=== PATIENT | female | born 2000 | race Caucasian/White ===

== ENCOUNTER 2018-07-12 08:23 | Day surgery (SDC) | payer OTHER ==
--- NOTE | 2018-07-11 21:24 | PDGENHP ---
History and Physical - Chief Complaint LEFT HIP PAIN - History of Present Illness 1. Bilateral~Femoroacetabular impingement (ROSEMARY) Cam type~(LEFT>>RIGHT symptoms ) 2. Bilateral~Hip Dyplasia, LEFT yanet, RIGHT borderline (LEFT>>RIGHT symptoms) 3. ~~Hyperlaxity with Beighton's 6 HISTORY OF PRESENT ILLNESS: Vladimiris a~17 y.o.~very~~active~female~who I have had the pleasure to consult on today.~I have enjoyed meeting her.~Naya~lives in [place], [place] but goes to school at [employer].~~Vladimiris a sophomore in college.~~Naya~is single;~naya~has 0~children. ~Vladimirenjoys running, played basketball in high school. Myranda's~bilateral~hip pain (L>>R)~started December 2017, with~little~recalled trauma or injury~(had run a marathon in July 2017 and continued doing 40-50 mi/ wk), and with~little~previous complaints.~Vladimirhas~a known history of hip dysplasia -- has been told by several MDs~(Ashish Arnold)~that she has mild dysplasia. Presentation today is of~anterior~bilateral~hip pain deep inside. ~The hip~does not~wake her~at night and~does~click and catch on~her~(R>L). Sitting~can be uncomfortable~for her.~Vladimirdoes not~report suffering from lower back pain episodes. Vladimirhas~participated in physical therapy (6 wks in January 2018)~and~has~ tried other conservative measures including massage therapy,~hip injections.~ She has had b/l hip injections done while she was at school in -- the right side was injected first with US guidance, after 3-5 days she had 85 % relief for 2-3 wks. Left was done with fluoro guidance with similar improvement to the other side.~She~has not~received sufficient symptomatic improvement. Vladimirhas~utilized medication for pain management, including NSAID and OTC acetaminophen.~Vladimirhas used medication consistently for January through March and has since stopped since it did not provide appreciable relief. Vladimirunderstands that~naya~has a hip and pelvis problem which should be researched and wishes to get a better understanding of~her~hip status, followed by an establishment of a treatment strategy, hoping~judithwould be able to get back to~her~well being active life. History: Past medical history:~~ None which is relevant~ Relevant familial history:~None which is relevant~ Past surgical history:~ None Vladimirhas never received general anesthesia. I have reviewed, verified and agree with the past medical, surgical, family and social history. Current Medications:~has a current medication list which includes the following prescription(s): cephalexin and norethindrone-e.estradiol-iron. ALLERGIES:~has No Known Allergies. Objective: Physical Examination: Vladimiris 6~feet~0~inches tall and weighs~145~Lbs. Shoe size~12. Vladimiris AAO x3; naya~is well-nourished, in NAD. Skin is warm and dry. ~Breathing is non-labored. ~CV with RRR by pulse. Abdomen is soft, NTND. Currently,~naya~walks with a~normal~gait. Trendelenburg sign is~negative~and proprioception~is decreased,~left~sides. She~presents~with moderate~signs of joint laxity.~Beightons Score:~6 (knees, elbows, pinkys) She~is fit looking. ~~ Lower spine examination is~negative~for sciatic or femoral nerve irritation with negative~SLR &~femoral stretch tests. Range of motion of the spine is normal~for flexion, extension, and rotations,~with no~associated pain. Strength, Sensation and pulses are~normal -~bilaterally Ankles and knees exams are~normal~and~no~mal-alignment is evident.~ Naya~has~minimal~left~0.25~cm short leg length discrepancy. Thigh circumference is~symmetric~with no evidence for muscle atrophy~on both~ sides. Hip ROM (degrees): FL ER At 90~hip FL IR At 90~hip FL AB AD EX IR Neutral hip ER Neutral hip R 120 45 35-40 40 10 5 55 30 L 120 45 35 45 5 5 45 25-30 Specific hip and pelvis tests: Impingement Test MICHELLE Roll Add. Longus R +++ +++ +++ Negative L +++ +++ +++ Negative Glut. Med ITB Posterior Imp R Negative 5/5 strength Negative 5/5 strength +++~(anterior) L Negative 5/5 strength Negative 5/5 strength +++~(anterior) Squeeze test measured~strong Bony Symphysis pubis is~pain free~to touch while concentric activity of the rectus abdominis, does not~produce pain at its insertion. Ilio Psos specific tests are~positive for pain during cycling for~both hips~and remarkable for no snap HF has~some pain, good strength~both hips. No significant~capsule tenderness b/l Greater trochanteric burse is~pain free~on both hips. Piriformis tests: FAIR is~negative,~with no~local signs of neuritis related to sciatic nerve. SIJs examination is~normal~with~normal~MICHELLE in relation and local tenderness. Hamstrings tests are~negative~tendinopathy both hips. On a daily basis, the following percentages reflect~Myranda's overall total pain: Deep hip~anterior:~100% Imaging: Radiology studies which I~have personally reviewed, analyzed and measured are below: XR: AP of the hip and pelvis: Performed in a~good~technique Coccyx to pubic symphysis distance~3~cm. No annotation~degrees caudal/cephal, upright WB films per pt [place]~Lines are preserved. No~Pathological signs are seen in the Symphysis Pubis.~ No~Pathological signs are seen at the Ischial~tuberosity. ~ Specific measurements show: NSA~ LCE Sourcil~Angle Sharp's angle Lat. Cam Lat. Pincer C.Over~sign Head~Coverage % ATDmm R 126 23 4 38 Neg Neg 2:00 77% 28.0 L 129 20 11 47 Neg Neg 1:00 75% 22.1 Pos. wall sign ISS NAD ~~Dysplasia Comments R + + 13.6~mm + L + Negative 16.3~mm + Sclerosis Sup. Lat. OA Cysts Joint Space-WBZ Joint Space-Medial R Negative Negative Negative 4.1~mm 4.1~mm L Negative Negative Negative 4.1~mm 3.4~mm X Table lateral: ~ Anterior cam lesion is~seen~on both hips. Alpha Angle: ~ Right~58~degrees Left~66~degrees MRI: 01/20/18 R hip - Good cartilage quality, no acetabular cysts/edema, labral tear, length 8.[address] / 3D:~ 04/28/18 Right hip: Lateral center edge angle: 28 degrees Anterior center edge angle: 55 degrees* Equatorial acetabular version angle: 27 degrees anteverted.* Cranial acetabular version angle: 7 degrees anteverted. Femoral neck shaft angle: 136 degrees Femoral neck version angle: 13 degrees anteverted Femoral shaft torsion angle: 32 degrees internally rotated Left hip: Lateral center edge angle: 20 degrees* Anterior center edge angle: 46 degrees* Equatorial acetabular version angle: 21 degrees anteverted.* Cranial acetabular version angle: 13 degrees anteverted.* Femoral neck shaft angle: 140 degrees Femoral neck version angle: 30 degrees anteverted* Femoral shaft torsion angle: 25 degrees internally rotated* Impression and plan:~ Myranda~is a~17 y.o.~active female~suffering from symptomatic~Bilateral~ Femoroacetabular impingement (ROSEMARY) Cam type~and~Bilateral~Hip Instability~(LEFT> >RIGHT)~causing significant disability to~her~and altering~her~sport and life activities. Physical examination, imaging, and~her~story correspond with the diagnosis mentioned above. I explained that hip dysplasia is a condition wherein the hip joint has excessive play~and instability due to a variety of factors, including the depth and adequacy of the socket, the orientation of the femur bone, and ligament laxity around the hip joint. Dysplasia ranges in severity from borderline to yanet, with treatment options being specific to the specific nature of the problem. Left untreated, the instability in the hip joint can cause progressive tearing of the labrum and deterioration of the surface cartilage, ultimately resulting in progressive osteoarthritis of the hip. I explained that femoroacetabular impingement (ROSEMARY - Cam type) arises due to a bony or soft tissue conflict between the femur (ball) and acetabulum (socket) caused by an abnormality in the shape of the femoral head and neck. Over time, repetitive impingement can result in damage to the labrum and adjacent surface cartilage within the socket, ultimately giving rise to progressive osteoarthritis of the hip. I explained that although a labral tear can be a source of pain, it is rarely the root of the problem and typically occurs secondary to an underlying abnormality in the shape and mechanics of the hip joint. I reviewed conservative treatment options for Dysplasia and ROSEMARY including activity modification to avoid positions of impingement or instability, physical therapy, non-steroidal anti-inflammatory medications, and various injections (corticosteroid and PRP) aimed at reducing inflammation in the hip joint or/and preventing dynamic instability and impingement. PRP injections may promote healing and reduce symptoms in certain cases but it will not repair chronically damaged tissue. Although these measures may help to buy time~and reduce current level of symptoms, they are not a definitive solution to the problem given the underlying abnormality in the shape of the hip joint. Patients who have failed conservative management and continue to experience symptoms are candidates for definitive surgical treatment, which may consist of hip arthroscopy alone or in combination with more invasive bony realignment procedures of the hip socket and/or femur called periacetabular osteotomy (MAYKEL) or derotational femoral osteotomy (DFO). Hip arthroscopy typically includes treating the labrum with either repair or reconstruction of the torn labrum; as well as addressing the underlying abnormalities by restoring the normal shape to the hip joint. If the cartilage is damaged a Microfracture surgical procedure may also be necessary to help stimulate the growth of fibrocartilage. If a patient requires a labral reconstruction or a Microfracture, the initial rehabilitation from the surgery may take longer, but the professor of astronomy results are typically favorable. I reviewed the technical aspects of periacetabular osteotomy (MAYKEL) including risks, benefits, and expected course of recovery. Myranda understands that MAYKEL is an inpatient procedure carried out through two medium sized incisions on the front and back of the hip joint. The hip socket is cut, realigned, and stabilized with 2 3 internal screws. Risks include infection, bleeding, injury to nearby nerves or vessels, stiffness, persistent pain, instability, failure of bony healing, implant related complications, and venous thromboembolic disease. Rarely, revision surgery may be required to address these problems. Risks, potential complications, side effects and recovery from surgical procedure were discussed in length. We explained how this surgery is an open procedure, and though patients tend to do well in the long-term, it involves significant pain in the first 2-4 weeks post-op and a rather lengthy rehab. Overall recovery takes approximately 6 12 months depending on the extent of damage and degree of repair. Myranda understands that she will undergo hip arthroscopy 1 week prior to the MAYKEL to address damage inside the hip joint. Myranda understands that hip arthroscopy and MAYKEL are two separate procedures that are best performed one week apart, with the arthroscopy commencing first to "tighten up" any pathology evident in the hip joint (labral repair, etc.) and the MAYKEL open procedure occurring 7-10 days later to realign the acetabulum. Vladimirwill review the info presented. We discussed at length the surgical options and recommendations. For her L side , her dysplasia is more significant and we would recommend scope/MAYKEL. The R side has less dysplasia, but given her antetorsion, acetabular version~and hyperlaxity, this may still be a significant contributor to her problem. Scope/ MAYKEL and scope alone are both viable choices as long as she is aware that scope alone may fail and then she would likely need scope/MAYKEL afterwards. Since she is young with good quality cartilage, she likely has enough reserve that her professor of astronomy outcomes would not be affected. If she decides to proceed with bilateral scope/MAYKEL, we would do the less symptomatic R side 4 months after the L. She is currently scheduled for L scope/MAYKEL in July~which she did prior to seeing me today based on her visits and recommendation with dr Arnold and Dr Hinojosa. I explained that I can follow up on Dr Hinojosa scope procedure. Vladimiris happy with this plan. I have also supplied~her~with handouts, outlining the expected surgical treatment and rehab involved. I wish~Vladimirall the best, ~~ Martha Siu MD History Information - Allergies/Home Medication List Allergies/Adverse Reactions: No Known Allergies Allergy (Verified 06/27/18 10:19) Home Medications: NK [No Known Home Meds] 06/27/18 [Last Taken Unknown] I have personally reviewed and updated: medical history - Social History Smoking Status: Never smoked Review of Systems Review of Systems: Physical Exam Physical Exam:
[2018-07-12] MEDS ORDERED: PREGABALIN 150 MG CAP PO ONE (08:34)
[2018-07-12] MEDS ORDERED: ceFAZolin 2 GM/DEXTROSE 100 ML IV ONE (08:34)
[2018-07-12] MEDS ORDERED: ACETAMINOPHEN 500 MG TAB PO ONE (08:34)
[2018-07-12] MEDS ORDERED: LIDOCAINE 1% 2 ML INJ ID PRN (08:39)
[2018-07-12] MEDS ORDERED: LR 1,000 ML IV ONE (08:39)
[2018-07-12] MEDS ORDERED: EPINEPHrine 30 MG/30 ML MDV (0.1 MG/0.1 ML) ONE ×2 (08:44→09:54)
[2018-07-12] MEDS ORDERED: BUPIVACAINE 0.25% 30 ML SDV ONE (09:54)
[2018-07-12] MEDS ORDERED: HYDROmorphONE/DILAUDID 2 MG/ML INJ IVP PRN (10:17)
[2018-07-12] MEDS ORDERED: ONDANSETRON 4 MG/2 ML VIAL IVP PRN (10:17)
[2018-07-12] MEDS ORDERED: LR 500 ML IV PRN (10:17)
[2018-07-12] MEDS ORDERED: ALBUTEROL 3 ML DEYVIAL IH PRN (10:17)
[2018-07-12] MEDS ORDERED: NS 500 ML IV PRN (10:17)
[2018-07-12] MEDS ORDERED: MIDAZOLAM 2 MG/2 ML VIAL IVP ONE (10:17)
[2018-07-12] MEDS ORDERED: NALOXONE HCL 0.4 MG/ML INJ IVP PRN (10:17)
[2018-07-12] MEDS ORDERED: PROPOFOL/EMULSION 500 MG/50 ML BOTTLE IV ONE (11:02)
[2018-07-12] MEDS ORDERED: fentaNYL 100 MCG/2 ML INJ ONE ×4 (11:37→15:44)
[2018-07-12] MEDS ORDERED: ePHEDrine SULFATE 25 MG/5 ML SYR ONE (11:56)
[2018-07-12] MEDS: BUPIVACAINE/EPI 0.25% 10 ML SDV ONE ×2 (12:29→12:31)
--- NOTE | 2018-07-12 13:02 | POSTOPPROG ---
Post Op Note Date of Operation: 07/12/18 Surgeon: Efrain Hood Automatic [employer] Cut Off Sawyer: Dr. Kunz Anesthesia: GET(General Endotracheal) Pre-op Diagnosis: LEFT ROSEMARY Post-op Diagnosis: LEFT ROSEMARY Procedure: Left hip arthroscopy Inf/Abcess present in the surg proc area at time of surgery?: No
[2018-07-12] MEDS: fentaNYL 100 MCG/2 ML INJ IVP PRN ×3 (14:10→15:47)
--- NOTE | 2018-07-12 14:24 | POSTANESTH ---
Post Anesthetic Evaluation Cardiovascular Status: Normal, Stable Respiratory Status: Normal, Stable Level of Consciousness/Mental Status: Can Participate in Eval Pain Control: Inadeq, Add Tx Required Nausea/Vomiting Control: Adequate, Prn Tx Ordered Complications Possibly Related to Anesthesia: None Noted
[2018-07-12] MEDS ORDERED: HYDROmorphONE/DILAUDID 2 MG/ML INJ ONE (14:38)
[2018-07-12] MEDS ORDERED: OXYCODONE/APAP 5/325 TAB ONE (15:44)
[2018-07-12] MEDS ORDERED: OXYCODONE/APAP 5/325 TAB PO PRN (15:49)
== END 2018-07-12 17:00 | disposition home or self-care (01) ==
LOC: EDSEX 08:23 → FSGY 08:23
PROVIDERS: ATTEND Orthopaedic Surgery Sports Medicine
PROC: 0SQB4ZZ Repair Left Hip Joint, Percutaneous Endoscopic Approach (ICD-10-PCS; principal; 2018-07-12 10:00)
DX: M25.852 Other specified joint disorders, left hip (principal); M24.152 Other articular cartilage disorders, left hip; Q65.89 Other specified congenital deformities of hip
CPT/HCPCS: C1713; J0171; J0690; J1170; J2250; J2704; J3010

== ENCOUNTER 2018-07-19 05:37 | Inpatient (IN) | payer OTHER ==
--- NOTE | 2018-07-18 21:32 | PDGENHP ---
History and Physical - Chief Complaint LEFT HIP PAIN - History of Present Illness 1. Bilateral~Femoroacetabular impingement (ROSEMARY) Cam type~(LEFT>>RIGHT symptoms ) 2. Bilateral~Hip Dyplasia, LEFT yanet, RIGHT borderline (LEFT>>RIGHT symptoms) 3. ~~Hyperlaxity with Beighton's 6 HISTORY OF PRESENT ILLNESS: Vladimiris a~17 y.o.~very~~active~female~who I have had the pleasure to consult on today.~I have enjoyed meeting her.~Naya~lives in [place], [place] but goes to school at [employer].~~Vladimiris a sophomore in college.~~Naya~is single;~naya~has 0~children. ~Vladimirenjoys running, played basketball in high school. Myranda's~bilateral~hip pain (L>>R)~started December 2017, with~little~recalled trauma or injury~(had run a marathon in July 2017 and continued doing 40-50 mi/ wk), and with~little~previous complaints.~Vladimirhas~a known history of hip dysplasia -- has been told by several MDs~(Ashish Arnold)~that she has mild dysplasia. Presentation today is of~anterior~bilateral~hip pain deep inside. ~The hip~does not~wake her~at night and~does~click and catch on~her~(R>L). Sitting~can be uncomfortable~for her.~Vladimirdoes not~report suffering from lower back pain episodes. Vladimirhas~participated in physical therapy (6 wks in January 2018)~and~has~ tried other conservative measures including massage therapy,~hip injections.~ She has had b/l hip injections done while she was at school in -- the right side was injected first with US guidance, after 3-5 days she had 85 % relief for 2-3 wks. Left was done with fluoro guidance with similar improvement to the other side.~She~has not~received sufficient symptomatic improvement. Vladimirhas~utilized medication for pain management, including NSAID and OTC acetaminophen.~Vladimirhas used medication consistently for January through March and has since stopped since it did not provide appreciable relief. Vladimirunderstands that~naya~has a hip and pelvis problem which should be researched and wishes to get a better understanding of~her~hip status, followed by an establishment of a treatment strategy, hoping~judithwould be able to get back to~her~well being active life. History: Past medical history:~~ None which is relevant~ Relevant familial history:~None which is relevant~ Past surgical history:~ None Vladimirhas never received general anesthesia. I have reviewed, verified and agree with the past medical, surgical, family and social history. Current Medications:~has a current medication list which includes the following prescription(s): cephalexin and norethindrone-e.estradiol-iron. ALLERGIES:~has No Known Allergies. Objective: Physical Examination: Vladimiris 6~feet~0~inches tall and weighs~145~Lbs. Shoe size~12. Vladimiris AAO x3; naya~is well-nourished, in NAD. Skin is warm and dry. ~Breathing is non-labored. ~CV with RRR by pulse. Abdomen is soft, NTND. Currently,~naya~walks with a~normal~gait. Trendelenburg sign is~negative~and proprioception~is decreased,~left~sides. She~presents~with moderate~signs of joint laxity.~Beightons Score:~6 (knees, elbows, pinkys) She~is fit looking. ~~ Lower spine examination is~negative~for sciatic or femoral nerve irritation with negative~SLR &~femoral stretch tests. Range of motion of the spine is normal~for flexion, extension, and rotations,~with no~associated pain. Strength, Sensation and pulses are~normal -~bilaterally Ankles and knees exams are~normal~and~no~mal-alignment is evident.~ Naya~has~minimal~left~0.25~cm short leg length discrepancy. Thigh circumference is~symmetric~with no evidence for muscle atrophy~on both~ sides. Hip ROM (degrees): FL ER At 90~hip FL IR At 90~hip FL AB AD EX IR Neutral hip ER Neutral hip R 120 45 35-40 40 10 5 55 30 L 120 45 35 45 5 5 45 25-30 Specific hip and pelvis tests: Impingement Test MICHELLE Roll Add. Longus R +++ +++ +++ Negative L +++ +++ +++ Negative Glut. Med ITB Posterior Imp R Negative 5/5 strength Negative 5/5 strength +++~(anterior) L Negative 5/5 strength Negative 5/5 strength +++~(anterior) Squeeze test measured~strong Bony Symphysis pubis is~pain free~to touch while concentric activity of the rectus abdominis, does not~produce pain at its insertion. Ilio Psos specific tests are~positive for pain during cycling for~both hips~and remarkable for no snap HF has~some pain, good strength~both hips. No significant~capsule tenderness b/l Greater trochanteric burse is~pain free~on both hips. Piriformis tests: FAIR is~negative,~with no~local signs of neuritis related to sciatic nerve. SIJs examination is~normal~with~normal~MICHELLE in relation and local tenderness. Hamstrings tests are~negative~tendinopathy both hips. On a daily basis, the following percentages reflect~Myranda's overall total pain: Deep hip~anterior:~100% Imaging: Radiology studies which I~have personally reviewed, analyzed and measured are below: XR: AP of the hip and pelvis: Performed in a~good~technique Coccyx to pubic symphysis distance~3~cm. No annotation~degrees caudal/cephal, upright WB films per pt [place]~Lines are preserved. No~Pathological signs are seen in the Symphysis Pubis.~ No~Pathological signs are seen at the Ischial~tuberosity. ~ Specific measurements show: NSA~ LCE Sourcil~Angle Sharp's angle Lat. Cam Lat. Pincer C.Over~sign Head~Coverage % ATDmm R 126 23 4 38 Neg Neg 2:00 77% 28.0 L 129 20 11 47 Neg Neg 1:00 75% 22.1 Pos. wall sign ISS NAD ~~Dysplasia Comments R + + 13.6~mm + L + Negative 16.3~mm + Sclerosis Sup. Lat. OA Cysts Joint Space-WBZ Joint Space-Medial R Negative Negative Negative 4.1~mm 4.1~mm L Negative Negative Negative 4.1~mm 3.4~mm X Table lateral: ~ Anterior cam lesion is~seen~on both hips. Alpha Angle: ~ Right~58~degrees Left~66~degrees MRI: 01/20/18 R hip - Good cartilage quality, no acetabular cysts/edema, labral tear, length 8.[address] / 3D:~ 04/28/18 Right hip: Lateral center edge angle: 28 degrees Anterior center edge angle: 55 degrees* Equatorial acetabular version angle: 27 degrees anteverted.* Cranial acetabular version angle: 7 degrees anteverted. Femoral neck shaft angle: 136 degrees Femoral neck version angle: 13 degrees anteverted Femoral shaft torsion angle: 32 degrees internally rotated Left hip: Lateral center edge angle: 20 degrees* Anterior center edge angle: 46 degrees* Equatorial acetabular version angle: 21 degrees anteverted.* Cranial acetabular version angle: 13 degrees anteverted.* Femoral neck shaft angle: 140 degrees Femoral neck version angle: 30 degrees anteverted* Femoral shaft torsion angle: 25 degrees internally rotated* Impression and plan:~ Myranda~is a~17 y.o.~active female~suffering from symptomatic~Bilateral~ Femoroacetabular impingement (ROSEMARY) Cam type~and~Bilateral~Hip Instability~(LEFT> >RIGHT)~causing significant disability to~her~and altering~her~sport and life activities. Physical examination, imaging, and~her~story correspond with the diagnosis mentioned above. I explained that hip dysplasia is a condition wherein the hip joint has excessive play~and instability due to a variety of factors, including the depth and adequacy of the socket, the orientation of the femur bone, and ligament laxity around the hip joint. Dysplasia ranges in severity from borderline to yanet, with treatment options being specific to the specific nature of the problem. Left untreated, the instability in the hip joint can cause progressive tearing of the labrum and deterioration of the surface cartilage, ultimately resulting in progressive osteoarthritis of the hip. I explained that femoroacetabular impingement (ROSEMARY - Cam type) arises due to a bony or soft tissue conflict between the femur (ball) and acetabulum (socket) caused by an abnormality in the shape of the femoral head and neck. Over time, repetitive impingement can result in damage to the labrum and adjacent surface cartilage within the socket, ultimately giving rise to progressive osteoarthritis of the hip. I explained that although a labral tear can be a source of pain, it is rarely the root of the problem and typically occurs secondary to an underlying abnormality in the shape and mechanics of the hip joint. I reviewed conservative treatment options for Dysplasia and ROSEMARY including activity modification to avoid positions of impingement or instability, physical therapy, non-steroidal anti-inflammatory medications, and various injections (corticosteroid and PRP) aimed at reducing inflammation in the hip joint or/and preventing dynamic instability and impingement. PRP injections may promote healing and reduce symptoms in certain cases but it will not repair chronically damaged tissue. Although these measures may help to buy time~and reduce current level of symptoms, they are not a definitive solution to the problem given the underlying abnormality in the shape of the hip joint. Patients who have failed conservative management and continue to experience symptoms are candidates for definitive surgical treatment, which may consist of hip arthroscopy alone or in combination with more invasive bony realignment procedures of the hip socket and/or femur called periacetabular osteotomy (MAYKEL) or derotational femoral osteotomy (DFO). Hip arthroscopy typically includes treating the labrum with either repair or reconstruction of the torn labrum; as well as addressing the underlying abnormalities by restoring the normal shape to the hip joint. If the cartilage is damaged a Microfracture surgical procedure may also be necessary to help stimulate the growth of fibrocartilage. If a patient requires a labral reconstruction or a Microfracture, the initial rehabilitation from the surgery may take longer, but the associate quality engineer results are typically favorable. I reviewed the technical aspects of periacetabular osteotomy (MAYKEL) including risks, benefits, and expected course of recovery. Myranda understands that MAYKEL is an inpatient procedure carried out through two medium sized incisions on the front and back of the hip joint. The hip socket is cut, realigned, and stabilized with 2 3 internal screws. Risks include infection, bleeding, injury to nearby nerves or vessels, stiffness, persistent pain, instability, failure of bony healing, implant related complications, and venous thromboembolic disease. Rarely, revision surgery may be required to address these problems. Risks, potential complications, side effects and recovery from surgical procedure were discussed in length. We explained how this surgery is an open procedure, and though patients tend to do well in the long-term, it involves significant pain in the first 2-4 weeks post-op and a rather lengthy rehab. Overall recovery takes approximately 6 12 months depending on the extent of damage and degree of repair. Myranda understands that she will undergo hip arthroscopy 1 week prior to the MAYKEL to address damage inside the hip joint. Myranda understands that hip arthroscopy and MAYKEL are two separate procedures that are best performed one week apart, with the arthroscopy commencing first to "tighten up" any pathology evident in the hip joint (labral repair, etc.) and the MAYKEL open procedure occurring 7-10 days later to realign the acetabulum. Vladimirwill review the info presented. We discussed at length the surgical options and recommendations. For her L side , her dysplasia is more significant and we would recommend scope/MAYKEL. The R side has less dysplasia, but given her antetorsion, acetabular version~and hyperlaxity, this may still be a significant contributor to her problem. Scope/ MAYKEL and scope alone are both viable choices as long as she is aware that scope alone may fail and then she would likely need scope/MAYKEL afterwards. Since she is young with good quality cartilage, she likely has enough reserve that her associate quality engineer outcomes would not be affected. If she decides to proceed with bilateral scope/MAYKEL, we would do the less symptomatic R side 4 months after the L. She is currently scheduled for L scope/MAYKEL in July~which she did prior to seeing me today based on her visits and recommendation with dr Arnold and Dr Hinojosa. I explained that I can follow up on Dr Hinojosa scope procedure. Vladimiris happy with this plan. I have also supplied~her~with handouts, outlining the expected surgical treatment and rehab involved. I wish~Vladimirall the best, ~~ Martha Siu MD History Information - Allergies/Home Medication List Allergies/Adverse Reactions: No Known Allergies Allergy (Verified 06/27/18 10:19) Home Medications: Naproxen 07/14/18 [Last Taken Unknown] Percocet 5/325 (*) 07/14/18 [Last Taken Unknown] I have personally reviewed and updated: medical history - Social History Smoking Status: Never smoked Review of Systems Review of Systems: Physical Exam Physical Exam:
[2018-07-19] MEDS ORDERED: PREGABALIN 150 MG CAP PO ONE (06:11)
[2018-07-19] MEDS ORDERED: SCOPOLAMINE HYDROBROMIDE 1 MG/3 DAYS PATCH TD ONE (06:11)
[2018-07-19] MEDS ORDERED: LR 1,000 ML IV ONE (06:11)
[2018-07-19] MEDS ORDERED: ACETAMINOPHEN 500 MG TAB PO ONE (06:11)
[2018-07-19] MEDS ORDERED: TRANEXAMIC ACID 1,000 MG in NS 100 ML IV ONE (06:11)
[2018-07-19] MEDS ORDERED: ceFAZolin 2 GM/DEXTROSE 100 ML IV ONE (06:11)
[2018-07-19] MEDS ORDERED: CITRATE DEXTROSE SOLN 500 ML BAG ONE (06:56)
--- NOTE | 2018-07-19 06:56 | PDANEPAE ---
ANE History of Present Illness Hip dysplasia ANE Past Medical History - Cardiovascular History Hx Hypertension: No Hx Arrhythmias: No Hx Chest Pain: No Hx Coronary Artery / Peripheral Vascular Disease: No Hx CHF / Valvular Disease: No Hx Palpitations: No - Pulmonary History Hx COPD: No Hx Asthma/Reactive Airway Disease: No Hx Recent Upper Respiratory Infection: No Hx Oxygen in Use at Home: No Hx Sleep Apnea: No Sleep Apnea Screening Result - Last Documented: Negative - Neurologic History Hx Cerebrovascular Accident: No Hx Seizures: No Hx Dementia: No - Endocrine History Hx Diabetes: No - Renal History Hx Renal Disorders: No - Liver History Hx Hepatic Disorders: No - Neurological & Psychiatric Hx Hx Neurological and Psychiatric Disorders: No - Cancer History Hx Cancer: No - Congenital Disorder History Hx Congenital Disorders: Yes Congenital History Comment: hip dysplagia - GI History Hx Gastrointestinal Disorders: No - Other Health History Other Health History: none - Chronic Pain History Chronic Pain: Yes (bilateral hips) - Surgical History Prior Surgeries: n/a ANE Review of Systems Review of Systems: - Exercise capacity METS (RN): 4 METS ANE Patient History - Allergies Allergies/Adverse Reactions: No Known Allergies Allergy (Verified 06/27/18 10:19) - Home Medications Home medications: home medication list seen and reviewed Home Medications: Naproxen Sodium [Naproxen Sodium ER] 500 mg PO BID 07/14/18 [Last Taken 07/17/18 ] oxyCODONE/APAP 5/325 [Percocet 5/325 (*)] 1 - 2 tab PO Q4-6PRN PRN 07/14/18 [ Last Taken Unknown] Adapalene/Benzoyl Peroxide [Epiduo Forte 0.3-2.5% Gel Pump] 1 brandy TP HS [Last Taken 07/18/18] Diazepam [Valium 2 MG (*)] 2 mg PO Q6HRS PRN 07/19/18 [Last Taken Unknown] Ondansetron Odt [Zofran Odt 4 mg (*)] 4 mg PO Q6HRS PRN 07/19/18 [Last Taken Unknown] - NPO status NPO Status: no food or drink >8 hours NPO Since - Liquids (Date): 07/18/18 NPO Since - Liquids (Time): 19:00 NPO Since - Solids (Date): 07/18/18 NPO Since - Solids (Time): 19:00 - Anes Hx Anes Hx: no prior problems - Smoking Hx Smoking Status: Never smoked - Family Anes Hx Family Hx Anesthesia Complications: none ANE Labs/Vital Signs - Labs Result Diagrams: 07/19/18 06:05 - Vital Signs Blood Pressure: 101/75 Heart Rate: 75 Respiratory Rate: 20 O2 Sat (%): 96 Height: 182.88 cm Weight: 65.771 kg ANE Physical Exam - Airway Neck exam: FROM Mallampati Score: Class 1 Mouth exam: normal dental/mouth exam - Pulmonary Pulmonary: no respiratory distress - Cardiovascular Cardiovascular: regular rate and rhythym - ASA Status ASA Status: I ANE Anesthesia Plan Anesthesia Plan: general endotracheal anesthesia, spinal (With MS for POPM PSR)
[2018-07-19] MEDS ORDERED: MIDAZOLAM 2 MG/2 ML VIAL IVP ONE (07:02)
[2018-07-19] MEDS ORDERED: MIDAZOLAM 2 MG/2 ML VIAL ONE (07:03)
[2018-07-19] MEDS ORDERED: fentaNYL 100 MCG/2 ML INJ ONE ×4 (07:13→13:13)
[2018-07-19] MEDS ORDERED: PROPOFOL 200 MG/20 ML VIAL ONE (07:13)
[2018-07-19] MEDS ORDERED: morphINE PF 5 MG/10 ML INJ ONE (07:13)
[2018-07-19] MEDS ORDERED: ONDANSETRON 4 MG/2 ML VIAL ONE (07:50)
[2018-07-19] MEDS ORDERED: DEXAMETHASONE 4 MG/ML VIAL ONE (07:50)
[2018-07-19] MEDS ORDERED: ROCURONIUM 50 MG/5 ML VIAL ONE ×3 (07:58→11:05)
[2018-07-19] MEDS ORDERED: NALOXONE HCL 0.4 MG/ML INJ IVP PRN ×3 (11:46→13:13)
[2018-07-19] MEDS ORDERED: ONDANSETRON 4 MG/2 ML VIAL IVP PRN ×2 (11:46→13:11)
[2018-07-19] MEDS ORDERED: HYDROmorphONE/DILAUDID 2 MG/ML INJ IVP PRN (11:46)
[2018-07-19] MEDS ORDERED: SUGAMMADEX SODIUM 200 MG/2 ML VIAL IVP ONE (11:59)
--- NOTE | 2018-07-19 12:48 | POSTANESTH ---
Post Anesthetic Evaluation Cardiovascular Status: Similar to Pre-Op Cond Respiratory Status: Similar to Pre-op Cond. Level of Consciousness/Mental Status: Alert and Oriented Pain Control: Adequate, Prn Tx Ordered Nausea/Vomiting Control: Adequate, Prn Tx Ordered Complications Possibly Related to Anesthesia: None Noted
[2018-07-19] MEDS ORDERED: MAGNESIUM HYDROXIDE 30 ML UDCUP PO PRN (13:11)
[2018-07-19] MEDS ORDERED: BISACODYL 10 MG SUPP PR PRN (13:11)
[2018-07-19] MEDS ORDERED: ACETAMINOPHEN 325 MG TAB PO PRN (13:11)
[2018-07-19] MEDS ORDERED: POLYETHYLENE GLYCOL 3350 17 GM PKT PO PRN (13:11)
[2018-07-19] MEDS ORDERED: LACTULOSE 20 GM/30 ML UDCUP PO PRN (13:11)
[2018-07-19] MEDS ORDERED: ONDANSETRON DISINTEGRATING 4 MG TAB PO PRN (13:11)
[2018-07-19] MEDS ORDERED: METOCLOPRAMIDE 10 MG/2 ML VIAL IVP PRN (13:13)
[2018-07-19] MEDS ORDERED: diphenhydrAMINE 25 MG CAP PO PRN (13:13)
[2018-07-19] MEDS ORDERED: oxyCODONE IR 15 MG TAB PO PRN (13:14)
[2018-07-19] MEDS ORDERED: NS 1,000 ML IV SCH (13:15)
[2018-07-19] MEDS: fentaNYL 100 MCG/2 ML INJ IVP PRN ×2 (13:15→13:31)
[2018-07-19] MEDS: oxyCODONE IR 5 MG TAB PO SCH ×4 (14:36→22:20)
[2018-07-19] MEDS: HYDROmorphONE/DILAUDID 6 MG/30 ML PCA IV PRN (15:36)
--- NOTE | 2018-07-19 15:36 | PDMN ---
Medical Necessity Medical necessity: Pt meets inpt criteria per MD order and Musculoskeletal surgery GRG, op: periacetabular osteotomy, IP only list, pre-approved inpt FOR 1 DAY, 07/19-07/20, AUTH NUMBER [id number]. 17 y/o w/L hip dysplasia and bilat femoroacetabular impingement admitted for MAYKEL and post-op care.
[2018-07-19] MEDS: NAPROXEN SODIUM 220 MG TAB PO SCH ×2 (17:16→22:20)
--- NOTE | 2018-07-19 21:58 | SUROPNOTE ---
[facility] Operative Report - Surgery Surgery was performed at [facility] on~07/19/18~ Diagnosis:~Left 1. Hip Acetabular Dysplasia ~ Operation: Left~Mica Acetabular Osteotomy (MAYKEL) Surgeon: Efrain Hood MD Dictaphone Transcriber:~~Martha Kunz Anesthetic: General + spinal Procedure: General anesthetic. Antibiotics given. Cell saver in use. Fluoroscopy. Phase 1: Position lateral, diagonal skin incision between ischial tuberosity and greater trochanter as for posterior hip approach. Blunt split of glut max fibers. Identification of fat pad overlying sciatic nerve. Exposure of sciatic nerve under fat pad, gently retracting it away-medially to ischial tuberosity. Exposure of subcotoloid fossa proximal to short rotators. UsingPrecision saw, osteotomy of subcotoloid -65 mm short of (lateral to) thesciatic notch. Closure of lateral cut. Patient is turned supine. Phase 2: Skin incision just distal to ASIS. Using diathermy the iliac spine was exposed and inguinal ligament + Sartorious were retracted medially, taking the LFCN with them, protecting it. Inner ilium was dissected from iliacus muscle bluntly , with a cob and swab. Dissection continued towards lateral superior ramus pubis. Using fluoroscopy an osteotomy of lateral superior ramus, just medial to tear drop, was performed with~curved fish mouth osteotome. Phase 3: Osteotomy lines of the ilium were marked with diathermy as pre planned according to XR/CT and expected correction of acatabulum. 2 Shanz screws were drilled into central acetabular fragment, corresponding with planned correction angles, in order to mobilize central acetabular fragment after osteotomy is complete. ~Iliac osteotomy was performed with reciprocating saw and the main acetabular fragment was moved to realign weight bearing position. After confirmation of correction using fluoroscopy in AP and false profile planes, the fragment was fixed with 2 -~5.5mm~~full threaded~screws~and 1x4mm~full threaded~screw. Inguinal ligament and Sartorious were attached back to ASIS through drill holes. Incision was closed according to soft tissue layers. Skin was closed with~subdermal Monocryl. Final fluoro shots were obtained to confirm position/correction. After surgery~Myranda~moved both lower limbs and had no NV motor compromise. Specimen - none Bleeding -~900ml Complication - none Evaluation under anesthesia: IR at 90 degrees hip flexion prior to MAYKEL was~35~degrees and after MAYKEL was 15~ degrees. Bleeding:~900~cc into cell-saver, 405~of blood products were returned to patient. Post op instructions: 1.~toe touch~weight bearing till post op XR then FREDDY~crutches for 6 weeks 2. Epidural analgesia for 24-48 hours 3. Continuous SCD 4. Aspirin 81 mg X1 day once Epidural is discontinued 5. Avoid hip flexion past 90 and hip External rotation. 6. PT according to my recommendations at follow up visit Kind regards, Dr. Efrain Hood .
[2018-07-19] MEDS: SENNOSIDES/DOCUSATE SODIUM TAB PO SCH (22:20)
[2018-07-20] MEDS: oxyCODONE IR 5 MG TAB PO SCH ×6 (01:54→21:50)
[2018-07-20] MEDS: PANTOPRAZOLE SODIUM 40 MG TAB PO SCH (08:24)
[2018-07-20] MEDS: SENNOSIDES/DOCUSATE SODIUM TAB PO SCH ×2 (08:24→21:50)
[2018-07-20] MEDS: NAPROXEN SODIUM 220 MG TAB PO SCH ×3 (08:24→21:50)
--- NOTE | 2018-07-20 15:41 | PDPAINCON ---
Pain Management Consultation Patient referred by : Yelitza Griffin - Subjective Pain is: under control Side effects include: No drowsy, No itchiness, No nausea Activity: participating in PT - Objective Technique: spinal opioid Sensory and motor exam: block has resolved, no apparent ill effects Vital signs: stable - Assessment/Plan Assessment/Plan: pain well-controlled, continue current mgmt (POD 1 s/p MAYKEL with IT morphine, reported good analgesia until 0200 this AM followed by transition to PO/DIRECTOR OF SEARCH ENGINE MARKETING. Denies pruritis, nausea, weakness, paresthesias.)
--- NOTE | 2018-07-20 15:59 | ASMTCMCOM ---
CM Note CM Note Notes: Pt had planned hip dysplasia surgery, resides with parents. OT rec home, PT rec HHC/outpatient. CM to follow pt progress. D/c is likely independent. Date Signed: 07/20/2018 03:58 PM Electronically Signed By:ALBERTA Fitzpatrick
[2018-07-20] MEDS ORDERED: NS 1,000 ML IV SCH (16:00)
[2018-07-20] MEDS: METHOCARBAMOL 750 MG TAB PO PRN ×2 (16:25→23:45)
--- NOTE | 2018-07-20 16:41 | GCON ---
[f rep st] CONSULTATION REFERRING PHYSICIAN: Efrain Hood MD REASON FOR CONSULTATION: Medical management. HISTORY OF PRESENT ILLNESS: Briefly, the patient is a delightful 17-year-old female who presented with left hip pain. She has a history of bilateral hip pain and has tried multiple conservative treatments. She ran a marathon in July of 2017, and also is an avid saxophone player. In December 2017, she noticed that she was having increased pain and was having trouble with walking. She has seen multiple orthopedic surgeons, did a trial of 2 steroid injections. She subsequently had a CT scan that showed dysplasia on the left hip, as well as impingement. She had a scope a week ago and had a labral tear repair. Yesterday, she had a periacetabular osteotomy with Dr. Hood. During my interview, her main complaint is ongoing pain to the left hip area. It is overall well controlled with use of TAVERN KEEPER. She is also complaining of a headache. She denies any shortness of breath, any type of chest pain. No weight changes. Appetite is good. No problems with urinary retention or constipation. During my interview, her best friend is at the bedside, as well as her parents. PAST MEDICAL HISTORY: None. PAST SURGICAL HISTORY: [place] teeth extraction. SOCIAL HISTORY: She is studying biology in [place]. Her goal is to get into [employer]. She is currently in a relationship. She does not smoke. She does not drink alcohol. FAMILY HISTORY: Her parents are healthy. ALLERGIES: No known allergies. HOME MEDICATIONS: Percocet 1 to 2 tabs q.4 hours p.r.n., naproxen 500 mg b.i.d. , Epiduo 1 application topical q.h.s., Zofran 4 mg q.6 hours p.r.n., and Valium 2 mg q.6 hours p.r.n. REVIEW OF SYSTEMS: A 10-point review of system was performed, was negative other than pertinent positives in the HPI and past medical history. PHYSICAL EXAM: GENERAL: The patient is a 17-year-old female who appears to be in excellent health. VITAL SIGNS: Blood pressure is 106/55, heart rate of 88, respiratory rate of 16, O2 saturation on room air 98%, temperature 36.7. HEENT : Eyes: Pupils are equal reactive. EOMs are intact. No conjunctival injection noted. ENT: Normal ears. Hearing intact. Normal lips, teeth. Oral airway is moist. NECK: Trachea is midline. CARDIOVASCULAR: Regular rate and rhythm. No murmurs, rubs, or gallops noted. CHEST: Lungs normal respiratory effort. Clear without wheezing, rale, rales noted. ABDOMEN: Soft , nontender. SKIN: No rashes, ulcer. Her left hip is swollen without any drainage noted. MUSCULOSKELETAL: Not evaluated. PSYCHIATRIC: She is alert, oriented. Normal mood, affect. Normal judgment, insight, and normal memory. DATA REVIEWED: A CBC was performed, which showed a white blood cell count of 4.91, hemoglobin 8.6, hematocrit of 26.3, platelet count of 119. Chemistry: Sodium is 138, potassium 3.8, chloride of 108, CO2 25, BUN 11, creatinine 0.7, calcium 8.1. ASSESSMENT/PLAN: 1. Left hip dysplasia. She is postop day #1 for a left periacetabular osteotomy. Pain per orthopedic team. Will add Robaxin p.r.n. and encourage ice to help with the pain. 2. Postoperative anemia. This is expected blood loss. Will check her hemoglobin and hematocrit in the morning. 3. Thrombocytopenia. Will follow. 4. Deep venous thrombosis prophylaxis, on aspirin therapy. Thank you for this consultation. The hospitalist team will continue to follow her during her hospital stay. /[id number]/MODL MTDD
[2018-07-20] MEDS: HYDROmorphONE/DILAUDID 6 MG/30 ML PCA IV PRN (17:00)
--- NOTE | 2018-07-20 21:07 | SOAPPROG ---
SOAP Progress Note Assessment/Plan: Assessment: 17 yo F POD#1 s/p L MAYKEL, doing well post-operatively. Plan: Continue WIRE SPIRAL BINDER with increased dose, transition to PO pain control likely tomorrow vs Wednesday Robaxin vs valium for muscle spasm ASA, SCDs for DVT ppx PT/OT AP pelvis XR on POD#3, needs to be reviewed by Dr. Hood prior to d/c 07/20/18 21:04 Subjective: Pt reports 6-7/10 pain on WIRE SPIRAL BINDER/PO pain meds. Mobilized with PT today and kruse removed, voided. Overall doing ok. No CP/SOB/N/V. Objective: Vital Signs Temp Pulse Resp BP Pulse Ox 36.4 C 100 16 106/53 L 96 07/20/18 20:00 07/20/18 20:00 07/20/18 20:00 07/20/18 20:00 07/20/18 20:00 Laboratory Results 07/20/18 04:17 07/20/18 04:17 07/19/18 07/20/18 07/21/18 05:59 05:59 05:59 Intake Total 2500 Output Total 1250 3550 Balance 1250 -3550 Gen: NAD L hip dressings c/d/i Lateral thigh numbness 4-5/10 in LFCN distribution Distally 5/5 EHL, TA, GSC SILT throughout foot ICD10 Worksheet Patient Problems: Problems Problem Status Onset Hip dysplasia Acute - ICD10 Problem Qualifiers (1) Hip dysplasia
[2018-07-21] MEDS: oxyCODONE IR 5 MG TAB PO SCH ×6 (02:07→21:39)
[2018-07-21] MEDS: HYDROmorphONE/DILAUDID 6 MG/30 ML PCA IV PRN ×2 (06:26→21:34)
[2018-07-21] MEDS: NAPROXEN SODIUM 220 MG TAB PO SCH ×3 (10:19→21:39)
[2018-07-21] MEDS: SENNOSIDES/DOCUSATE SODIUM TAB PO SCH ×2 (10:19→21:39)
[2018-07-21] MEDS: PANTOPRAZOLE SODIUM 40 MG TAB PO SCH (10:19)
[2018-07-21] MEDS: DIAZEPAM 2 MG TAB PO PRN ×3 (10:32→22:19)
[2018-07-21] MEDS: ASPIRIN EC 81 MG TAB PO SCH (14:27)
--- NOTE | 2018-07-21 14:51 | ASMTCMCOM ---
CM Note CM Note Notes: PT rec outpatient today, OT continue to rec home. Anticipate pt will d/c when medically stable with parents support and following MD rec for outpatient. No CM d/c needs identified. CM available for chages/needs. Date Signed: 07/21/2018 02:50 PM Electronically Signed By:ALBERTA Fitzpatrick
--- NOTE | 2018-07-21 15:13 | ASMTCMCOM ---
CM Note CM Note Notes: PT/OT continue rec SNF, pt is max A with ADLs. Pt had some delirium this morning, likely related to medication. Pt is being followed at [facility] by PCP Bj's office. Spoke with pt Nimesh, he wanted to reiterate pt is unsafe to go home. D/c plan of care: [facility] Date Signed: 07/21/2018 03:12 PM Electronically Signed By:ALBERTA Fitzpatrick
--- NOTE | 2018-07-21 16:06 | HOSPPROG ---
Hospitalist Progress Note Assessment/Plan: 17 yo F pod 1 from hip surgery pain: well controlled ABLA: follow daily does not need transfusion thrmobocytopenia: likely blood loss follow proph: scd's Subjective: pain well controlled Objective: Vital Signs Temp Pulse Resp BP Pulse Ox 36.9 C 112 H 16 98/60 L 91 L 07/21/18 13:54 07/21/18 13:54 07/21/18 13:54 07/21/18 13:54 07/21/18 13:54 Laboratory Results 07/21/18 04:20 07/20/18 04:17 07/20/18 07/21/18 07/22/18 05:59 05:59 05:59 Intake Total 2500 600 500 Output Total 1250 4250 900 Balance 1250 -3650 -400 - Physical Exam Constitutional: no apparent distress, appears nourished Eyes: PERRL, anicteric sclera Ears, Nose, Mouth, Throat: moist mucous membranes, hearing normal Cardiovascular: regular rate and rhythym, no murmur, rub, or gallop Respiratory: no respiratory distress, no rales or rhonchi Gastrointestinal: normoactive bowel sounds, soft, non-tender abdomen Genitourinary: No kruse in urethra Skin: warm, normal color Musculoskeletal: full muscle strength Neurologic: AAOx3 ICD10 Worksheet Patient Problems: Problems Problem Status Onset Hip dysplasia Acute
[2018-07-22] MEDS: oxyCODONE IR 5 MG TAB PO SCH ×3 (02:06→09:01)
[2018-07-22] MEDS: oxyCODONE IR 5 MG TAB PO PRN ×2 (04:33→11:13)
[2018-07-22] MEDS: DIAZEPAM 2 MG TAB PO PRN ×2 (05:25→11:30)
--- NOTE | 2018-07-22 08:01 | SOAPPROG ---
SOJESUS Progress Note Assessment/Plan: Assessment: Plan: 07/22/18 08:00 Saw patient POD 3/4 Doing well, pain is now controlled 10/10, waiting for XR so we can clear to go home. NV intact aside LFCN with some reduced sensation. Incision looks good. Dr Hood Objective: Vital Signs Temp Pulse Resp BP Pulse Ox 36.9 C 90 15 95/54 L 93 07/22/18 06:00 07/22/18 06:00 07/22/18 06:00 07/22/18 06:00 07/22/18 06:00 Laboratory Results 07/21/18 04:20 07/20/18 04:17 07/21/18 07/22/18 07/23/18 05:59 05:59 05:59 Intake Total 600 1750 Output Total 4250 900 Balance -3650 850 ICD10 Worksheet Patient Problems: Problems Problem Status Onset Hip dysplasia Acute
[2018-07-22] MEDS: NAPROXEN SODIUM 220 MG TAB PO SCH (09:01)
[2018-07-22] MEDS: PANTOPRAZOLE SODIUM 40 MG TAB PO SCH (09:01)
[2018-07-22] MEDS: ASPIRIN EC 81 MG TAB PO SCH (09:01)
[2018-07-22] MEDS: SENNOSIDES/DOCUSATE SODIUM TAB PO SCH (09:01)
--- NOTE | 2018-07-22 11:52 | ASMTCMCOM ---
CM Note CM Note Notes: Please disregard last CM note on 07/21 - info entered on wrong patient. Patient is medically stable for discharge today, will d/c home independently with support of parents. CM available should needs arise. Plan: Independent Date Signed: 07/22/2018 11:52 AM Electronically Signed By:Radha Atkinson RN
--- NOTE | 2018-07-22 11:54 | ASMTLACE ---
SILVINOE Length of stay for Answers: 3 days current admission Acuity / Level of Answers: Yes Care: Did the patient have an inpatient admission? Comorbidities - select Answers: Opioid dependence all that apply / Chronic pain # of Emergency department Answers: 0 visits in the last 6 months Score: 10 Date Signed: 07/22/2018 11:53 AM Electronically Signed By:Radha Atkinson RN
== END 2018-07-22 12:45 | disposition home or self-care (01) | DRG 516 ==
LOC: EDSEX → F3N 05:37
PROVIDERS: ADMIT Orthopaedic Surgery Sports Medicine; ATTEND Orthopaedic Surgery Sports Medicine
PROC: 0QS504Z Reposition Left Acetabulum with Internal Fixation Device, Open Approach (ICD-10-PCS; principal; 2018-07-19 07:15)
PROC: 30233H0 Transfusion of Autologous Whole Blood into Peripheral Vein, Percutaneous Approach (ICD-10-PCS; principal; 2018-07-19 07:15)
DX: Q65.89 Other specified congenital deformities of hip (principal); D62 Acute posthemorrhagic anemia; D69.59 Other secondary thrombocytopenia
CPT/HCPCS: 97116-GP; 97162-GP; 97166-GO; 97530-GO; 97535-GO; C1713; J0690; J1100; J1170; J2250; J2274; J2405; J2704; J3010